=== PATIENT | male | born 1985 | race Caucasian/White ===

== ENCOUNTER 2023-09-26 10:23 | Outpatient (CLI) | payer OTHER, SELFPAY ==
--- NOTE | 2023-10-15 14:35 | WPDSLEEPSTUD ---
Sleep Study Date of Study: 09/26/23 Ordering Provider: Thelam Bolaños MD Interpreting Physician: Aarti Andrade DO Sleep Study Type: Split Polysomnogram Height: 1.88 m Weight: 129.274 kg Body Mass Index: 36.6 Neck Circumference (inches): 22 [place]askill: 0 Reason for Sleep Study Sleep-onset insomnia HSAT in [address] Bishop showed AHI of 22.6. Prescribed APAP Sleep History The patient is a 38-year-old male with hypertension, insomnia, obesity, restless legs syndrome, history of tobacco use and previously diagnosed sleep apnea that had a sleep study ordered by his rehab therapist for evaluation of sleep apnea. The patient denies awakening from sleep short of breath. He denies awakening at night with heartburn, belching or cough. He constantly snores loudly enough that others complain. He frequently has trouble sleeping when he has a cold. He occasionally wakes up gasping for air throughout the night. He occasionally has breathing problems at night observed by himself or others. He denies sweating excessively at night. He denies having heart palpitations or irregular heartbeats during the night. He denies falling asleep during the day and while driving. He denies sleep paralysis and cataplexy. He denies having trouble at school or work due to sleepiness. He occasionally experiences vivid dreamlike scenes upon awakening or falling asleep. He denies feeling afraid of going to sleep. He denies having nightmares. He occasionally remembers his dreams. He constantly has thoughts racing through his mind. He denies feeling sad or depressed. He constantly has anxiety. He denies having muscular tension. He constantly notices parts of his body jerk. He constantly kicks during the night. He occasionally has crawling and aching feelings in his legs but denies having leg pain during the night. He denies grinding his teeth during sleep and denies awakening with morning jaw pain. He denies being bothered by pain during the day and denies being awakened by pain during the night. He constantly wakes up feeling stiff in the morning. He occasionally wakes up with sore or achy muscles. He occasionally wakes up with pain neck, spine and other joints. He goes to bed between 10-11 p.m. on both weekdays and weekends. It takes him 20 minutes to fall asleep when using zolpidem. He denies waking up throughout the night. He wakes up at 6:30 a.m. on weekdays and 7:30 a.m. on weekends. He typically gets 7 hours of sleep per night. He will stay in bed for 5 minutes after waking up in the morning. He currently lives with his and 3 children. He denies consuming any caffeinated beverages within 2 hours of bedtime. He will engage in physical exercise before bedtime. He will watch television before falling asleep. He denies taking naps in afternoon or the evening. He denies consuming caffeinated beverages throughout the day. He quit smoking cigarettes over 10 years ago. He denies alcohol and recreational drug use. [facility] Past Medical History Medical History CHRISTIE (obstructive sleep apnea) RLS (restless legs syndrome) Seasonal allergic rhinitis Surgical History Surgical History History of arthroplasty of left shoulder Family History Family History Father Hypertension Hypercholesterolemia Psoriasis Neoplasm of esophagus Other Crohn's disease Sibling Degeneration macular Psoriasis Grandparent Alzheimer's disease Grandparent Alzheimer's disease Social History Social History Smoking status: Never smoker Alcohol intake: current Alcohol use details: occasional Substance use: never Medications Home Medications Medication Instructions Recorded Confirmed Type fluticasone prop
[2023-10-15 14:53] VITALS: BMI 36.6
== END 2023-09-27 06:56 | disposition home or self-care (01) ==
LOC: ANHCSM 10:24
PROVIDERS: Visit Provider Internal Medicine Critical Care Medicine
DX: G47.33 Obstructive sleep apnea (adult) (pediatric) (principal); G25.81 Restless legs syndrome; F39 Unspecified mood [affective] disorder; I10 Essential (primary) hypertension
CPT/HCPCS: 95811